=== PATIENT | female | born 1975 | race Caucasian/White ===

== ENCOUNTER → 2021-12-11 | Outpatient (CLI) | payer OTHER ==
--- NOTE | 2021-12-11 13:52 | RAD ---
EXAM: Right index finger, 3 views. HISTORY: Finger mass. COMPARISON: None. FINDINGS: 3 views of the right index finger are obtained. There is a corticated ossicle along the jayden jailene base of the second distal phalanx, the appearance of which favors a chronic nonunited fracture fr agment or chronic fragmented spur. There is overlying soft tissue prominence. There is no foreign bod y. IMPRESSION: Small suspected chronic nonunited fracture fragment or chronic fragmented spur along the dorsal base of the second distal phalanx. Electronically signed by: Mariann Alamo MD (12/11/2021 1:50 PM) [id number]
== END ==
LOC: LAB 13:25
PROVIDERS: ATTEND Plastic Surgery
DX: R22.31 Localized swelling, mass and lump, right upper limb (principal)
CPT/HCPCS: 73140